=== PATIENT | male | born 1950 | race Caucasian/White ===

== ENCOUNTER 2017-11-13 07:41 | Day surgery (SDC) | payer MEDICARE, OTHER ==
[~2017-11-13 07:41] MED LIST: Lactated Ringers 1,000 ML IV SCH; Midazolam 1 MG/ML 2 ML SDV ONE; Propofol 200 MG/20 ML SDV ONE; fentaNYL 100 MCG/2 ML SDV ONE
[2017-11-13] MEDS ORDERED: Lactated Ringers 1,000 ML IV SCH (08:30)
[2017-11-13] MEDS ORDERED: Ampicillin 2 GM in Sodium Chloride 0.9% 100 ML IV ONE (09:00)
[2017-11-13] MEDS ORDERED: Midazolam 1 MG/ML 2 ML SDV ONE (09:17)
[2017-11-13] MEDS ORDERED: Propofol 200 MG/20 ML SDV ONE (09:17)
[2017-11-13] MEDS ORDERED: fentaNYL 100 MCG/2 ML SDV ONE (09:17)
[2017-11-13 10:50] VITALS: BP 130/86
--- NOTE | 2017-11-13 11:04 | OR ---
DATE OF PROCEDURE: 11/13/2017 PREOP DIAGNOSIS: History of colon polyps. POSTOP DIAGNOSIS: Diverticulosis, history of colon polyps. PROCEDURE PERFORMED: Colonoscopy to the cecum. SURGEON: Jake Arias MD ANESTHESIA: IV anesthesia with monitored anesthesia care. INDICATION: This 67-year-old white male is referred for a colonoscopy because of a history of colon polyps. He says his last colonoscopic exam was done 4 years ago. I counseled him for the procedure, including risks and alternatives, and he gave his informed consent to proceed. DESCRIPTION OF PROCEDURE: The patient was placed in the left lateral decubitus position. IV anesthesia was administered by the Anesthesia Service. Time-out was held. A rectal exam was performed, which was unremarkable. The flexible video Olympus colonoscope was introduced through his anus, up his rectum, out his colon all the way to the cecum. En route, we saw several right-sided diverticula. There was no bleeding or inflammation associated with them. Once the cecum was reached, the scope was slowly withdrawn, examining the mucosa throughout. No additional mucosal abnormalities were noted. No neoplastic lesions were seen. The scope was retroflexed in the rectum with the distal rectum appearing unremarkable. The scope was straightened and removed. He tolerated the procedure well. Jake Arias MD /[id number]
== END 2017-11-13 11:12 | disposition home or self-care (01) ==
LOC: JP.SDS 07:41
PROVIDERS: ATTEND Surgery
DX: Z12.11 Encounter for screening for malignant neoplasm of colon (principal); K57.30 Diverticulosis of large intestine without perforation or abscess without bleeding; I10 Essential (primary) hypertension; F17.210 Nicotine dependence, cigarettes, uncomplicated; E66.9 Obesity, unspecified; Z86.010 Personal history of colon polyps; K21.9 Gastro-esophageal reflux disease without esophagitis; Z88.5 Allergy status to narcotic agent
CPT/HCPCS: 93005; G0121; J0290; J2250; J2704; J3010; J7030; J7120

== ENCOUNTER 2018-07-17 17:53 | Emergency (ER) | payer MEDICARE, OTHER, SELFPAY ==
[2018-07-17 18:10] VITALS: BP 104/72
[2018-07-17] MEDS ORDERED: Hypromellose 0.4% Ophth Soln 15 ML Bottle EYEBOTH ONE (18:50)
--- NOTE | 2018-07-17 19:00 | EDM.PDOC ---
ED HPI GENERAL MEDICAL PROBLEM - General Chief Complaint: Eye Problems Stated Complaint: SOMETHING IN EYE Time Seen by Provider: 07/17/18 18:47 Source of Information: Reports: Patient History Limitations: Reports: No Limitations - History of Present Illness INITIAL COMMENTS - FREE TEXT/NARRATIVE: This gentleman comes in complaining of bilateral eye pain. It started this morning after he was exposed to some dust. He said both eyes were hurting all day long and he was using Visine drops may be 10 times today. He flushed his eyes with water which seemed to help and the pain has away now apparently he still had a little bit on the way into the hospital but he says is all gone now the most recent discomfort was at the lateral canthus the right eye he said it felt like there is something there but that's completely resolved now. He said earlier his vision was a little bit blurry but it seems to be fine now. He never has tried any artificial tears. He did mention doing some wood cutting but that was 3 days ago. Right Eye Pain Score (Numeric/FACES): 1 - Related Data Allergies Allergy/AdvReac Type Severity Reaction Status Date / Time codeine AdvReac Itching Verified 07/17/18 18:08 morphine AdvReac Itching Verified 07/17/18 18:08 Home Meds: Home Meds amLODIPine [Norvasc] 1 tab PO DAILY 01/26/15 [History] Apixaban [Eliquis] 1 tab PO BID 12/10/17 [History] Metoprolol Succinate 1 tab PO DAILY 12/10/17 [History] SUMAtriptan Succinate [Imitrex] 1 tab PO ASDIRECTED PRN 12/10/17 [History] Past Medical History Cardiovascular History: Reports: Afib, Hypertension Gastrointestinal History: Reports: Cholelithiasis, Diverticulosis Other Gastrointestinal History: diverticulitis Genitourinary History: Reports: Renal Calculus Musculoskeletal History: Reports: None Neurological History: Reports: Concussion, Migraines Endocrine/Metabolic History: Reports: Obesity/BMI 30+ Hematologic History: Reports: Anticoagulation Therapy - Infectious Disease History Infectious Disease History: Reports: Chicken Pox, Measles - Past Surgical History Head Surgeries/Procedures: Reports: None Cardiovascular Surgical History: Reports: None GI Surgical History: Reports: Colonoscopy, Polypectomy Male Surgical History: Reports: None Endocrine Surgical History: Reports: None Neurological Surgical History: Reports: None Musculoskeletal Surgical History: Reports: Amputation, Knee Replacement Other Musculoskeletal Surgeries/Procedures:: toe Dermatological Surgical History: Reports: None Social & Family History - Tobacco Use Smoking Status *Q: Current Every Day Smoker Years of Tobacco use: 50 Packs/Tins Daily: 0.5 Used Tobacco, but Quit: No Second Hand Smoke Exposure: Yes - Caffeine Use Caffeine Use: Reports: Soda - Alcohol Use Days Per Week of Alcohol Use: 7 Number of Drinks Per Day: 1 Total Drinks Per Week: 7 - Recreational Drug Use Recreational Drug Use: No ED ROS GENERAL - Review of Systems Review Of Systems: ROS reveals no pertinent complaints other than HPI. ED EXAM GENERAL W FULL EYE - Physical Exam Exam: See Below Exam Limited By: No Limitations General Appearance: Alert, Obese Eye Exam: Bilateral Eye: Conjunctival Injection (Both eyes slightly injected.), EOMI, PERRL Course - Vital Signs Last Recorded V/S: Last Vital Signs Temp 35.6 C 07/17/18 18:10 Pulse 85 07/17/18 18:10 Resp 16 07/17/18 18:10 BP 104/72 07/17/18 18:10 Pulse Ox 93 L 07/17/18 18:10 - Orders/Labs/Meds Meds: Medications Discontinued Medications Generic Name Dose Route Start Last Admin Trade Name Freq PRN Reason Stop Dose Admin Artificial Tears 1 ml 07/17/18 18:50 Natural Balance Tears EYEBOTH 07/17/18 18:51 ONETIME ONE Departure - Departure Time of Disposition: 18:59 Disposition: Home, Self-Care 01 Condition: Good Clinical Impression: Sensation of foreign body in eye - Discharge Information Referrals: Mann Rader MD [Primary Care Provider] - Additional Instructions: This patient was going to be given some artificial tears however he got up decided he didn't need it in need anything and left.
== END 2018-07-17 19:01 | disposition left against medical advice (07) ==
LOC: JP.ED 17:53
DX: H57.89 Other specified disorders of eye and adnexa (principal); F17.210 Nicotine dependence, cigarettes, uncomplicated; I48.91 Unspecified atrial fibrillation; I10 Essential (primary) hypertension; Z79.01 Long term (current) use of anticoagulants; Z79.899 Other long term (current) drug therapy; Z88.5 Allergy status to narcotic agent
CPT/HCPCS: 99283; A9270

== ENCOUNTER 2020-11-19 01:54 | Emergency (ER) | payer MEDICARE, OTHER ==
--- NOTE | 2020-11-19 02:19 | EDM.PDOC ---
ED HPI GENERAL MEDICAL PROBLEM - General Chief Complaint: Lower Extremity Injury/Pain Stated Complaint: HURT RIGHT ANKLE Time Seen by Provider: 11/19/20 02:12 Source of Information: Reports: Patient, Old Records History Limitations: Reports: No Limitations - History of Present Illness INITIAL COMMENTS - FREE TEXT/NARRATIVE: Elias is a 70-year-old male presenting to the ED for evaluation of right ankle pain for the last 2 days. Patient denies any injury. The pain is been preventing him from walking. 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 He has previously seen Dr. Smith from podiatry at [facility]. He also receives care from the [facility] system. Similar episode earlier this year. He is wondering if he does not have a flare of gout. The right ankle is very painful and swollen. There is increased heat in the joint. right ankle Pain Score (Numeric/FACES): 6 - Related Data Allergies Allergy/AdvReac Type Severity Reaction Status Date / Time codeine AdvReac Itching Verified 11/19/20 02:10 morphine AdvReac Itching Verified 11/19/20 02:10 Home Meds: Home Meds amLODIPine [Norvasc] 10 mg PO DAILY 01/26/15 [History] Apixaban [Eliquis] 5 mg PO BID 12/10/17 [History] Metoprolol Succinate 50 mg PO DAILY 12/10/17 [History] Aspirin 81 mg PO DAILY 11/19/20 [History] Rosuvastatin [Crestor] 10 mg PO DAILY 11/19/20 [History] hydroCHLOROthiazide [Hydrochlorothiazide] 25 mg PO DAILY 11/19/20 [History] Past Medical History Cardiovascular History: Reports: Afib, Hypertension Gastrointestinal History: Reports: Cholelithiasis, Diverticulosis Other Gastrointestinal History: diverticulitis Genitourinary History: Reports: Renal Calculus Musculoskeletal History: Reports: None Neurological History: Reports: Concussion, Migraines Endocrine/Metabolic History: Reports: Obesity/BMI 30+ Hematologic History: Reports: Anticoagulation Therapy - Infectious Disease History Infectious Disease History: Reports: Chicken Pox, Measles - Past Surgical History Head Surgeries/Procedures: Reports: None Cardiovascular Surgical History: Reports: None GI Surgical History: Reports: Colonoscopy, Polypectomy Male Surgical History: Reports: None Endocrine Surgical History: Reports: None Neurological Surgical History: Reports: None Musculoskeletal Surgical History: Reports: Amputation, Knee Replacement Other Musculoskeletal Surgeries/Procedures:: toe Dermatological Surgical History: Reports: None Social & Family History - Caffeine Use Caffeine Use: Reports: Soda Review of Systems - Review of Systems Review Of Systems: See Below Constitutional: Reports: No Symptoms Musculoskeletal: Reports: Foot Pain (Right foot pain), Joint Swelling (Right ankle pain and swelling going into the foot) Skin: Reports: Erythema (Mild erythema of the foot on the right) Neurological: Reports: No Symptoms ED EXAM, GENERAL - Physical Exam Exam: See Below Exam Limited By: No Limitations General Appearance: Alert, Mild Distress, Moderate Distress Extremities: Joint Swelling (Swelling of the right ankle with exquisite tenderness over the medial and lateral joint line. Pain worsens with flexion and extension of the foot. The joint is warm), Limited Range of Motion (Secondary to pain. Reduced flexion and extension of the right ankle.), Increased Warmth (Right ankle increased warmth), Redness (Mild redness of the right ankle) Neurological: Alert, Oriented, Normal Cognition, No Motor/Sensory Deficits Psychiatric: Normal Affect, Normal Mood Skin Exam: Warm Course - Vital Signs Last Recorded V/S: Last Vital Signs Temp 36.7 C 11/19/20 02:26 Pulse 95 11/19/20 02:26 Resp 13 11/19/20 02:26 BP 110/78 11/19/20 02:26 Pulse Ox 95 11/19/20 02:26 - Orders/Labs/Meds Orders: Active Orders 24 hr Category Date Time Status Ankle Min 3V Rt [CR] Stat Exams 11/19/20 02:27 Taken Labs: Laboratory Tests 11/19/20 11/19/20 11/19/20 Range/Units 02:51 02:51 02:51 WBC 16.8 H (4.5-11.0) K/uL RBC 4.31 (4.30-5.90) M/uL Hgb 14.3 (12.0-15.0) g/dL Hct 41.1 (40.0-54.0) % MCV 95 (80-98) fL MCH 33 H (27-31) pg MCHC 35 (32-36) % Plt Count 287 (150-400) K/uL Neut % (Auto) 78.4 H (36-66) % Lymph % (Auto) 11.0 L (24-44) % Kingfisher % (Auto) 9.9 H (2-6) % Eos % (Auto) 0.4 L (2-4) % Baso % (Auto) 0.3 (0-1) % ESR 40 H (0-20) mm/hr Sodium 140 (140-148) mmol/L Potassium 3.3 L (3.6-5.2) mmol/L Chloride 99 L (100-108) mmol/L Carbon Dioxide 29 (21-32) mmol/L Anion Gap 15.3 H (5.0-14.0) mmol/L BUN 25 H D (7-18) mg/dL Creatinine 1.6 H (0.8-1.3) mg/dL Est Cr Clr Drug Dosing 44.19 mL/min Estimated GFR (MDRD) 43 L (>60) Glucose 118 H (74-106) mg/dL Uric Acid 9.0 H (3.5-7.2) mg/dL Calcium 9.4 (8.5-10.1) mg/dL C-Reactive Protein 1.92 H (0.0-0.3) mg/dL Meds: Medications Discontinued Medications Generic Name Dose Route Start Last Admin Trade Name Freq PRN Reason Stop Dose Admin Tramadol HCl 50 mg 11/19/20 03:30 11/19/20 03:36 Tramadol 50 Mg Tab PO 11/19/20 03:31 50 mg ONETIME ONE Administration - Re-Assessments/Exams Free Text/Narrative Re-Assessment/Exam: 11/19/20 03:40 on examination, the joint pain in the right ankle is accompanied by increased swelling, pain with flexion and extension, and increased temperature. The joint is exquisitely tender to palpation worrisome for acute gout. Labs were obtained and show a leukocytosis with a normal differential. Uric acid is elevated at 9.0. CRP and ESR are both elevated. This is consistent with an acute gouty flare. The patient has stage IIIb kidney disease so the use of NSAIDs is contraindicated. In addition, the patient is allergic to morphine. We will use tramadol 50 mg every 4 hours as needed for pain and a very long prednisone taper to reduce inflammation. I anticipate that this will take 2 to 3 days before he starts to have significant relief of the inflammation. He should follow up with his primary provider if not improving over the next 2 to 3 days. At this time he is suitable for discharge home. Indications return to the ED were discussed. Departure - Departure Time of Disposition: 03:42 Disposition: Home, Self-Care 01 Clinical Impression: Acute gout of right ankle Qualifiers: Gout etiology: due to renal impairment Qualified Code(s): M10.371 - Gout due to renal impairment, right ankle and foot - Discharge Information Instructions: Gout Referrals: Mann Rader MD [Primary Care Provider] - Forms: ED Department Discharge Care Plan Goals: Your work-up today has shown that you have an acute flare of gout involving your right ankle. Because of your kidney disease we are very limited in what we can use to treat this. I am putting you on a long prednisone taper to help reduce inflammation and we will use tramadol for pain control. You may use Tylenol as well reserving the tramadol for severe pain. I anticipate that this will take 3 to 4 days before you see a noticeable improvement in the swelling. Please make sure to drink plenty of fluids to help the kidneys clear the uric acid. You are going to want to limit the amount of red meat intake as this is high in uric acid and contributes to the gouty flare. Follow-up with your primary care provider early next week if not improving. Sepsis Event Note (ED) - Focused Exam Vital Signs: Vital Signs Temp Pulse Resp BP Pulse Ox 11/19/20 02:26 36.7 C 95 13 110/78 95 11/19/20 02:24 36.7 C 95 13 110/78 95 - Problem List & Annotations (1) Acute gout of right ankle SNOMED Code(s): 396010087594539, [id number] Code(s): M10.9 - GOUT, UNSPECIFIED Status: Acute Priority: Medium Current Visit: Yes Qualifiers: Gout etiology: due to renal impairment Qualified Code(s): M10.371 - Gout due to renal impairment, right ankle and foot - Problem List Review Problem List Initiated/Reviewed/Updated: Yes - My Orders Last 24 Hours: My Active Orders 11/19/20 02:27 Ankle Min 3V Rt [CR] Stat - Assessment/Plan Last 24 Hours: My Active Orders 11/19/20 02:27 Ankle Min 3V Rt [CR] Stat
[2020-11-19 03:16] VITALS: BP 110/78; PULSE 95
[2020-11-19] MEDS ORDERED: traMADol 50 MG Tab PO ONE (03:30)
--- NOTE | 2020-11-19 07:56 | CRLCR ---
For Patients: As a result of the Century Cures Act, medical imaging exams and procedure reports are released immediately into your electronic medical record. You may view this report before your referring provider. If you have questions, please contact your health care provider. Indication: Pain and swelling. Technique: Three views of the right ankle. Comparison: Findings: The ankle mortise is intact. The talar dome is intact. Soft tissue swelling is identified laterally. No fracture or subluxation is identified. Impression: Soft tissue swelling laterally. No acute fracture. Dictated by Faith Saravia MD @ 11/19/2020 7:54:37 AM (Electronically Signed)
== END 2020-11-19 04:10 | disposition home or self-care (01) ==
LOC: JP.ED 01:54
DX: M10.371 Gout due to renal impairment, right ankle and foot (principal); E66.9 Obesity, unspecified; Z88.5 Allergy status to narcotic agent; Z68.36 Body mass index [BMI] 36.0-36.9, adult; Z79.82 Long term (current) use of aspirin
CPT/HCPCS: 36415; 73610; 80048; 84550; 85025; 85651; 86140; 99283; A9270

== ENCOUNTER 2021-04-16 10:25 | Emergency (ER) | payer OTHER, MEDICARE ==
[2021-04-16 10:45] VITALS: BP 118/79; PULSE 89
[2021-04-16] MEDS ORDERED: Colchicine 0.6 MG Tab PO ONE ×2 (11:20→11:21)
[2021-04-16] MEDS ORDERED: methylPREDNISolone Sodium Succinate 125 MG/2 ML SDV IM ONE (11:21)
== END 2021-04-16 11:52 | disposition home or self-care (01) ==
LOC: JP.ED 10:25
DX: M10.9 Gout, unspecified (principal); I48.91 Unspecified atrial fibrillation; E78.00 Pure hypercholesterolemia, unspecified; J44.9 Chronic obstructive pulmonary disease, unspecified; I12.9 Hypertensive chronic kidney disease with stage 1 through stage 4 chronic kidney disease, or unspecified chronic kidney disease; N18.9 Chronic kidney disease, unspecified; E66.9 Obesity, unspecified; Z68.34 Body mass index [BMI] 34.0-34.9, adult; Z72.0 Tobacco use; Z88.5 Allergy status to narcotic agent; Z79.01 Long term (current) use of anticoagulants; Z79.82 Long term (current) use of aspirin; Z79.899 Other long term (current) drug therapy
CPT/HCPCS: 96372; 99282; 99283; A9270-GY; J2930

== ENCOUNTER 2022-02-19 16:02 | Emergency (ER) | payer MEDICARE, OTHER ==
[2022-02-19 16:12] VITALS: BP 141/81; PULSE 98
== END 2022-02-19 17:29 | disposition home or self-care (01) ==
LOC: JP.ED 16:02
DX: Z48.01 Encounter for change or removal of surgical wound dressing (principal); I48.91 Unspecified atrial fibrillation; J44.9 Chronic obstructive pulmonary disease, unspecified; I12.9 Hypertensive chronic kidney disease with stage 1 through stage 4 chronic kidney disease, or unspecified chronic kidney disease; N18.9 Chronic kidney disease, unspecified; M10.9 Gout, unspecified; E66.9 Obesity, unspecified; Z68.37 Body mass index [BMI] 37.0-37.9, adult; Z96.641 Presence of right artificial hip joint; Z79.01 Long term (current) use of anticoagulants; Z79.82 Long term (current) use of aspirin; Z79.899 Other long term (current) drug therapy; Z88.5 Allergy status to narcotic agent
CPT/HCPCS: 36415; 85018; 99283

== ENCOUNTER 2022-02-25 21:43 | Emergency (ER) | payer OTHER ==
[2022-02-25 21:56] VITALS: BP 124/83; PULSE 95
== END 2022-02-25 22:55 | disposition home or self-care (01) ==
LOC: JP.ED 21:43
DX: M96.842 Postprocedural seroma of a musculoskeletal structure following a musculoskeletal system procedure (principal); J44.9 Chronic obstructive pulmonary disease, unspecified; I10 Essential (primary) hypertension; F17.210 Nicotine dependence, cigarettes, uncomplicated; E66.9 Obesity, unspecified; Z68.37 Body mass index [BMI] 37.0-37.9, adult; Z88.5 Allergy status to narcotic agent; Z88.6 Allergy status to analgesic agent; Z79.899 Other long term (current) drug therapy; Z79.01 Long term (current) use of anticoagulants; Z79.82 Long term (current) use of aspirin
CPT/HCPCS: 99282; 99283

== ENCOUNTER 2023-08-15 07:14 | Day surgery (SDC) | payer OTHER ==
[2023-08-15] MEDS: Sodium Chloride 0.9% 10 ML Syringe FLUSH PRN (07:53)
[2023-08-15 08:55] VITALS: BP 122/89; PULSE 83
== END 2023-08-15 08:57 | disposition home or self-care (01) ==
LOC: JP.SDS 07:14
PROVIDERS: ATTEND Ophthalmology
DX: H25.11 Age-related nuclear cataract, right eye (principal); J44.9 Chronic obstructive pulmonary disease, unspecified; N18.9 Chronic kidney disease, unspecified
CPT/HCPCS: 66984; J3490; V2632

== ENCOUNTER 2023-08-29 08:28 | Day surgery (SDC) | payer OTHER ==
[2023-08-29 09:08] VITALS: PULSE 82
[2023-08-29] MEDS: Sodium Chloride 0.9% 10 ML Syringe FLUSH PRN (09:10)
[2023-08-29 10:34] VITALS: BP 122/87
== END 2023-08-29 10:30 | disposition home or self-care (01) ==
LOC: JP.SDS 08:28
PROVIDERS: ATTEND Ophthalmology
DX: H25.12 Age-related nuclear cataract, left eye (principal); I12.9 Hypertensive chronic kidney disease with stage 1 through stage 4 chronic kidney disease, or unspecified chronic kidney disease; N18.9 Chronic kidney disease, unspecified; I25.10 Atherosclerotic heart disease of native coronary artery without angina pectoris
CPT/HCPCS: 00142-QZ; J3490; V2632